=== PATIENT | male | born 1965 | race Two or more races ===

== ENCOUNTER 2021-03-27 16:12 | Emergency (ER) | payer OTHER ==
[~2021-03-27] VITALS: Ht 167.6 cm; Wt 72.6 kg
[2021-03-27 17:05] VITALS: BP 114/78
[2021-03-27] MEDS ORDERED: FLUORESCEIN SOD OPTH TEST STRIP OP ONE (17:15)
[2021-03-27] MEDS ORDERED: TETRACAINE HCL 0.5% OPTH(EYE) SOLN 4ML EACHEYE ONE (17:15)
== END 2021-03-27 18:10 | disposition home or self-care (01) ==
LOC: ER 16:12
DX: T15.81XA Foreign body in other and multiple parts of external eye, right eye, initial encounter (principal); X58.XXXA Exposure to other specified factors, initial encounter; Y93.89 Activity, other specified; Y92.89 Other specified places as the place of occurrence of the external cause; Y99.8 Other external cause status
CPT/HCPCS: 65222